=== PATIENT | male | born 1965 | race Caucasian/White ===

== ENCOUNTER 2019-05-28 20:05 | Emergency (ER) | payer MEDICAID ==
[~2019-05-28] VITALS: Ht 170.2 cm; Wt 85.0 kg
[~2019-05-28 20:05] MED LIST: TRAZODONE
[2019-05-28 20:13] VITALS: BP 154/87
== END 2019-05-29 00:29 | disposition left against medical advice (07) ==
LOC: ER 20:05
DX: R10.9 Unspecified abdominal pain (principal); Z53.21 Procedure and treatment not carried out due to patient leaving prior to being seen by health care provider

== ENCOUNTER 2021-12-04 14:33 | Emergency (ER) | payer MEDICAID, OTHER ==
[~2021-12-04] VITALS: Ht 177.8 cm; Wt 91.0 kg
[2021-12-04] MEDS ORDERED: ONDANSETRON HCL 4MG/2ML INJ IV STA (14:56)
[2021-12-04] MEDS ORDERED: KETOROLAC 30MG/ML VIAL IV STA (14:56)
[2021-12-04] MEDS ORDERED: SODIUM CHLORIDE 0.9% 1,000 ML IV ONE (15:00)
[2021-12-04] MEDS ORDERED: MIDAZOLAM HCL 2 MG/2 ML VIAL IV ONE (15:00)
[2021-12-04 15:35] LABS: BASOPHILS % 0.2 % (0.0-2.0); EOSINOPHILS % 0.1 % (0.0-5.0); HEMATOCRIT. 47.3 % (42.0-52.0); HEMOGLOBIN. 15.9 g/dL (14.0-18.0); MEAN CORPUSCULAR HEMOGLOBIN 31.2 pg (28.0-32.0); MEAN CORPUSCULAR VOLUME 92.9 fL (80.0-94.0); MEAN PLATELET VOLUME 8.9 fl (7.4-10.4); MONOCYTES % 4.9 % (2.0-8.0); NEUTROPHILS % 82.8 % (40.0-76.0); PLATELET 270 x1000/uL (130-400); RED BLOOD CELL COUNT 5.09 mill/uL (4.7-6.1); RED CELL DISTRIBUTION WIDTH 14.4 % (11.6-14.6)
[2021-12-04 15:47] LABS: CHLORIDE 110 mEq/L (98-107)
[2021-12-04] MEDS ORDERED: MAGNESIUM/ALUMINUM HYDROXIDE/SIMETHICONE 30ML UDC PO NR (16:45)
[2021-12-04] MEDS ORDERED: FAMOTIDINE 20MG/2ML VIAL IV NR (16:45)
[2021-12-04 16:54] VITALS: BP 138/62
[2021-12-04 17:11] LABS: CLARITY URINE TURBID (CLEAR); COLOR URINE YELLOW (YELLOW); KETONES URINE TRACE (NEGATIVE); LEUKOCYTE ESTERASE URINE NEGATIVE (NEGATIVE); NITRITE URINE NEGATIVE (NEGATIVE); OCCULT BLOOD URINE NEGATIVE (NEGATIVE); PROTEIN URINE NEGATIVE (NEGATIVE); SPECIFIC GRAVITY URINE 1.034 (1.005-1.030); UROBILINOGEN URINE 0.2 E.U./dL (0.2-1.0)
[2021-12-04 17:27] LABS: *AMPHETAMINES SCREEN URINE NEGATIVE (NEGATIVE); *BARBITURATES SCREEN URINE NEGATIVE (NEGATIVE); *BENZODIAZEPINES SCREEN URINE PRESUMTIVE POSITIVE (NEGATIVE); *COCAINE SCREEN URINE NEGATIVE (NEGATIVE); CANNABINOID URINE SCREEN PRESUMTIVE POSITIVE (NEGATIVE); METHADONE URINE SCREEN NEGATIVE (NEGATIVE); OPIATES URINE SCREEN NEGATIVE (NEGATIVE); PHENCYCLIDINE URINE SCREEN NEGATIVE (NEGATIVE)
== END 2021-12-04 17:32 | disposition home or self-care (01) ==
LOC: ER 14:33
DX: K29.70 Gastritis, unspecified, without bleeding (principal); R11.2 Nausea with vomiting, unspecified; Z87.19 Personal history of other diseases of the digestive system
CPT/HCPCS: 36415; 80053; 80305; 80320; 81003; 83690; 85025; 93005; 96361; 96374; 96375; 99284; J1885; J2250; J2405; G0480

== ENCOUNTER 2024-05-08 09:32 | Emergency (ER) | payer OTHER, MEDICAID ==
[~2024-05-08] VITALS: Ht 167.6 cm; Wt 75.0 kg
[2024-05-08 09:34] VITALS: BP 168/88; PULSE 105; RESP 18; TEMP 98.4; O2SAT 97
== END 2024-05-08 15:47 | disposition left against medical advice (07) ==
LOC: ER 09:39
DX: R10.9 Unspecified abdominal pain (principal); Z53.21 Procedure and treatment not carried out due to patient leaving prior to being seen by health care provider